=== PATIENT | male | born 1940 | race Hispanic/Latino ===

== ENCOUNTER 2023-09-09 19:38 | Emergency (ER) | payer MEDICARE ==
[~2023-09-09] VITALS: Ht 175.3 cm; Wt 89.6 kg
[~2023-09-09 19:38] MED LIST: LORTAB 7.5 OR; NO HOME MEDS
[2023-09-09 21:55] VITALS: BP 146/79
[2023-09-09] MEDS ORDERED: PREDNISONE20 MG PO (22:13)
[2023-09-09] MEDS ORDERED: VISTARIL25 MG PO (22:13)
[2023-09-09] MEDS ORDERED: ALLEGRA ALLERGY60 MG PO (22:13)
[2023-09-09] MEDS ORDERED: ALBENDAZOLE200 MG PO (22:19)
== END 2023-09-09 23:15 | disposition home or self-care (01) ==
LOC: ED 19:38
DX: S50.862A Insect bite (nonvenomous) of left forearm, initial encounter (principal); S50.861A Insect bite (nonvenomous) of right forearm, initial encounter; W57.XXXA Bitten or stung by nonvenomous insect and other nonvenomous arthropods, initial encounter; Z86.19 Personal history of other infectious and parasitic diseases

== ENCOUNTER 2025-01-23 17:26 | Inpatient (IN) | payer MEDICARE ==
[2025-01-23] VITALS (11 sets, daily range): BP systolic 132–177; BP diastolic 49–72
[~2025-01-23] VITALS: Ht 175.3 cm; Wt 85.0 kg
[~2025-01-23 17:26] MED LIST changes: +ALBENDAZOLE200 MG PO; +ALLEGRA ALLERGY60 MG PO; +PREDNISONE20 MG PO; +VISTARIL25 MG PO
[2025-01-23] MEDS ORDERED: cefTRIAXone SODIUM 2 GM in SODIUM CHLORIDE 0.9% 100 ML IV ONE (17:40)
--- NOTE | 2025-01-23 17:41 | NUR ---
PT TRANSPORTED TO ROOM 2 VIA W/C.
[2025-01-23 18:13] LABS: BASO% 0.5 % (0-3); EOS% 0.1 % (0-8); HEMATOCRIT 41.3 % (39.0-50.0); HEMOGLOBIN 13.9 g/dl (14.0-18.0); IMMATURE GRANULOCYTES 0.3 % (0.0-5.0); LYMPH% 13.1 % (15-41); MEAN CELL VOLUME 96.7 fL CALC (80.0-100.0); MEAN CORPUSCULAR HGB 32.6 pG CALC (26.0-32.0); MEAN CORPUSCULAR HGB CONC 33.7 g/dL CAL (32.0-36.0); NEUT# 7.95 thou/uL (1.82-7.42); RED BLOOD COUNT 4.27 mill/uL (4.70-6.10); RED CELL DISTRI WIDTH 12.8 % (11.5-15.5)
[2025-01-23 18:29] LABS: CREATININE 0.9 mg/dL (0.7-1.3); POTASSIUM 3.8 mmol/l (3.5-5.1); TOTAL PROTEIN 7.1 g/dL (6.3-8.2)
[2025-01-23 18:35] LABS: BILIRUBIN, TOTAL 0.8 mg/dL (0.2-1.3)
[2025-01-23] MEDS ORDERED: SODIUM CHLORIDE 0.9% 1,000 ML IV ONE (18:40)
[2025-01-23 18:41] LABS: URINE BILIRUBIN - DIPSTICK Negative (NEGATIVE); URINE BLOOD DIPSTICK Moderate (NEGATIVE); URINE COLOR Yellow; URINE GLUCOSE - DIPSTICK Negative (NEGATIVE); URINE KETONE 15 mg/dL (NEGATIVE); URINE LEUK ESTERASE Small (NEGATIVE); URINE NITRITE - DIPSTICK Positive (Negative); URINE PH 5.5 (4.5-8.0); URINE PROTEIN - DIPSTICK >=300 mg/dL (NEG-TRACE); URINE SPECIFIC GRAVITY 1.025
[2025-01-23 18:46] LABS: URINE BACTERIA MANY hpf; URINE WBC >100 WBC/hpf (0-5)
[2025-01-23 18:47] LABS: URINE RBC >100 RBC/hpf (0-5)
[2025-01-23] MEDS ORDERED: DOXYCYCLINE HYCLATE 100 MG in SODIUM CHLORIDE 0.9% 100 ML IV ONE (19:35)
[2025-01-23] MEDS ORDERED: ACETAMINOPHEN 325 MG/TAB PO ONE (20:10)
[2025-01-23] MEDS ORDERED: MAGNESIUM HYDROXIDE 30 ML UDC PO PRN (23:45)
[2025-01-23] MEDS ORDERED: SODIUM CHLORIDE 0.9% 1,000 ML IV PRN (23:45)
[2025-01-23] MEDS ORDERED: ACETAMINOPHEN 325 MG/TAB PO PRN (23:45)
[2025-01-24] VITALS (10 sets, daily range): BP systolic 91–120; BP diastolic 46–61
--- NOTE | 2025-01-24 00:30 | NUR ---
CALLED [facility], GAVE PT REPORT TO [place].
--- NOTE | 2025-01-24 01:31 | NUR ---
84 yr old male admitted to [facility] rn 272 per wc from er. weighed per digital scale then to bed. translated per rosario fuentes. conveyor monitor shows a flutter short runs of sinus rhythm. history obtained per pt & er record. oriented to room. fall precautions initiated.
--- NOTE | 2025-01-24 04:00 | NUR ---
groundwater monitoring technician shows a flutter hr 68
--- NOTE | 2025-01-24 07:14 | NUR ---
PT HAD A GLUCOSE OF 106 @0630.
--- NOTE | 2025-01-24 07:41 | NUR ---
PT IS AOX3, [place], RESPIRATIONS ARE EVEN AND UNLABORED ON ROOM AIR, LUNGS ARE CLEAR, BOWEL SOUNDS ARE ACTIVE, PEDAL PULSES ARE PALPABLE TO TOUCH, PT DENIES PAIN AT THIS TIME.
--- NOTE | 2025-01-24 10:36 | NUR ---
patient glucose level is 98.
--- NOTE | 2025-01-24 10:59 | NUR ---
CONTACTED DR DONAHUE'S OFFICE IN REFERENCE TO A UROLOGY CONSULT. I SPOKE WITH FLEX AT 1059 HRS.
[2025-01-24] MEDS ORDERED: CEFEPIME HYDROCHLORIDE 2 GM in SODIUM CHLORIDE 0.9% 100 ML IV SCH (12:00)
--- NOTE | 2025-01-24 14:33 | NUR ---
STOOL SAMPLE COLLECTED AND SENT TO LAB.
--- NOTE | 2025-01-24 15:23 | NUR ---
PT RESTING COMFORTABLY AT THIS TIME WITH RESPIRATIONS EVEN AND UNLABORED. PT BL , NOTIFIED KENROY JIMÉNEZ. PT DENIES PAIN AT THIS TIME.
--- NOTE | 2025-01-24 16:11 | NUR ---
patient glucose level is 97.
--- NOTE | 2025-01-24 18:28 | NUR ---
CALL PLACED TO DR SHANNON TO NOTIFY LAB CALLED TO REPORT PT'S BLOOD TEST WAS POSITIVE FOR ENTEROBACTERLOS AND E.COLI. PT CURRENTLY ON MAXIPIME.
--- NOTE | 2025-01-24 19:15 | NUR ---
awake. denies distress. cardiac nurse practitioner shows sinus rhythm 1st degree avb ivcd pacs pvcs. ivf infusing well. po fluids taken well. voids per urinal. fall precautions cont.
--- NOTE | 2025-01-24 20:47 | NUR ---
01/24/2025 @1999 pt glucose was 103.
[2025-01-24] MEDS ORDERED: ENOXAPARIN SODIUM 40 MG/0.4 ML SYR SC SCH (21:00)
[2025-01-24] MEDS ORDERED: Pantoprazole Sodium 40 MG VIAL (Protonix) IV SCH (21:00)
[2025-01-25] VITALS (11 sets, daily range): BP systolic 120–135; BP diastolic 60–70
--- NOTE | 2025-01-25 00:01 | NUR ---
monitoring specialist shows sinus rhythm 1st degree avb ivcd pacs pvcs
--- NOTE | 2025-01-25 04:00 | NUR ---
engine monitor shows sinus rhythm 1st dwgree avb ivcd pvcs hr 62
[2025-01-25 06:15] LABS: BASO% 0.5 % (0-3); EOS% 1.1 % (0-8); HEMATOCRIT 36.5 % (39.0-50.0); HEMOGLOBIN 12.2 g/dl (14.0-18.0); IMMATURE GRANULOCYTES 0.2 % (0.0-5.0); MEAN CELL VOLUME 98.6 fL CALC (80.0-100.0); MEAN CORPUSCULAR HGB CONC 33.4 g/dL CAL (32.0-36.0); MONO% 8.2 % (2-13); NEUT# 7.77 thou/uL (1.82-7.42); RED BLOOD COUNT 3.7 mill/uL (4.70-6.10); RED CELL DISTRI WIDTH 13.3 % (11.5-15.5)
[2025-01-25 06:18] LABS: BILIRUBIN, TOTAL 0.5 mg/dL (0.2-1.3); CREATININE 0.8 mg/dL (0.7-1.3); MAGNESIUM 1.8 mg/dL (1.6-2.3); POTASSIUM 3.7 mmol/l (3.5-5.1)
[2025-01-25 06:19] LABS: ALBUMIN 2.9 g/dL (3.2-5.0); TOTAL PROTEIN 5.3 g/dL (6.3-8.2)
--- NOTE | 2025-01-25 07:26 | NUR ---
PT IS AOX4, RESPIRATIONS ARE EVEN AND UNLABORED ON ROOM AIR, LUNGS ARE CLEAR THROUGHOUT, BOWEL SOUNDS ARE ACTIVE, PEDAL PULSES ARE STRONG, PT DENIES PAIN AT THIS TIME.
[2025-01-25] MEDS ORDERED: CEFEPIME HYDROCHLORIDE 2 GM in SODIUM CHLORIDE 0.9% 100 ML IV SCH (08:00)
--- NOTE | 2025-01-25 09:33 | NUR ---
IVF CHANGED FROM 100ML/HR TO 80ML/HR PER VERBAL ORDER FROM DR HORNER.
--- NOTE | 2025-01-25 15:37 | NUR ---
pt resting comfortably in the bed, respirations are even and unlabored, pt denies pain at this time.
--- NOTE | 2025-01-25 19:00 | NUR ---
RECD REPORT FROM DAY SHIFT RN. NO DISTRESS NOTED. DENIES COMPLAINTS AT THIS TIME. PT EDUCATED CLINICAL INFORMATION SYSTEMS DIRECTOR LIGHT AND FALL PRECAUTIONS. DEMONSTRATED UNDERSTANDING.
[2025-01-26] VITALS: BP 131/91
[2025-01-26 04:00] VITALS: BP 129/81
[2025-01-26 05:28] LABS: BASO% 0.8 % (0-3); EOS% 1.8 % (0-8); HEMATOCRIT 39.4 % (39.0-50.0); HEMOGLOBIN 13.1 g/dl (14.0-18.0); IMMATURE GRANULOCYTES 0.1 % (0.0-5.0); LYMPH% 21.2 % (15-41); MEAN CELL VOLUME 96.8 fL CALC (80.0-100.0); MEAN CORPUSCULAR HGB 32.2 pG CALC (26.0-32.0); MEAN CORPUSCULAR HGB CONC 33.2 g/dL CAL (32.0-36.0); MONO% 13.2 % (2-13); NEUT# 4.66 thou/uL (1.82-7.42); NEUT% 62.9 % (42-76); RED BLOOD COUNT 4.07 mill/uL (4.70-6.10); RED CELL DISTRI WIDTH 13.1 % (11.5-15.5)
[2025-01-26 05:41] LABS: ALBUMIN 2.9 g/dL (3.2-5.0); BILIRUBIN, TOTAL 0.6 mg/dL (0.2-1.3); CREATININE 0.7 mg/dL (0.7-1.3); MAGNESIUM 1.9 mg/dL (1.6-2.3); POTASSIUM 3.9 mmol/l (3.5-5.1); TOTAL PROTEIN 5.4 g/dL (6.3-8.2)
--- NOTE | 2025-01-26 06:34 | NUR ---
PT REMAINED STABLE THROUGHOUT SHIFT. DENIES COMPLAINTS. VSS RESTING WELL WITH CALL LIGHT WITHIN REACH
--- NOTE | 2025-01-26 07:05 | NUR ---
REPORT RECEIVED FROM LARN
[2025-01-26 07:29] VITALS: BP 142/82
[2025-01-26] MEDS ORDERED: PANTOPRAZOLE SODIUM Sesquihydr 40 MG/TAB PO SCH (09:00)
--- NOTE | 2025-01-26 09:15 | NUR ---
PT RESTING IN SEMI FOWLERS POSITION WITH FAMILY AT BEDSIDE.PT DENIES ANY CURRENT PAIN OR DISCOMFORTS, PAIN SCALE AND REPORTING EDUCATED.RESPIRATIONS EVEN AND UNLABORED ON RA, CLEAR LUNG SOUNDS.ABDOMEN SOFT ON PALPATION AND ACTIVE IN ALL 4 QUADRANTS. STRONG PEDAL PULSES;SKIN INTACT.TELE MONITORING [address] #20G TO RAC INFUSING NS @80ML/HR,SITE APPEARS HEALTHY AND ABX ADMINISTERED PER ORDER.PT DENIES ANY ADDITIONAL NEEDS AND IS ENCOURAGED TO CALL FOR ASSISTANCE IF NEEDED.FALL PRECAUTIONS IN PLACE WITH BED IN THE LOWEST POSITION AND CALL LIGHT IN REACH.FREQUENT ROUNDS MADE.
[2025-01-26 10:41] VITALS: BP 123/67
--- NOTE | 2025-01-26 12:30 | NUR ---
TELE ASP WEB DEVELOPER NOTIFIED OF PT HEART RATE 37-60 RANGE.ASYMPTOMATIC RESTING IN BED. MARGARITA ESTRELLA NOTIFIED. NO NEW ORDERS RECEIVED.
--- NOTE | 2025-01-26 12:30 | NUR ---
PT RESTING IN SEMI FOWLERS POSITION WITH FAMILY AT BEDSIDE.RESPIRATIONS EVEN AND UNLABORED ON RA. PT DENIES ANY CURRENT PAIN OR NEEDS.TELE MONITORING IN PLACE. IV SITE REMAINS PATENT INFUSING NS WITH EASE.ENCOURAGED TO CALL FOR ASSISTANCE IF NEEDED.CALL LIGHT IN REACH.FREQUENT ROUNDS MADE
[2025-01-26 14:47] VITALS: BP 118/62
--- NOTE | 2025-01-26 15:25 | NUR ---
PT RESTING IN SEMI FOWLERS POSITION WITH FAMILY AT BEDSIDE. RESPIRATIONS REMAIN EVEN AND UNLABORED ON RA. PT DENIES ANY CURRENT PAIN OR NEEDS. IV SITE TO RAC REMAINS PATENT INFUSING NS @ 80ML/HR, ABX ADMINISTERED AT THIS TIME PER ORDER. TELE MONITORING IN PLACE;URINAL EMPTIED OF 100CC OF CLEAR/YELLOW URINE. PT ENCOURAGED TO CALL FOR ASSISTANCE IF NEEDED.CALL LIGHT IN REACH.FREQUENT ROUNDS MADE
--- NOTE | 2025-01-26 15:32 | NUR ---
PT AND FAMILY REPORTS PT HAD A BOWEL MOVEMENT LAST NIGHT 01/25/25 THAT WAS NOT DOCUMENTED BY NIGHTSHIFT. PT DENIES THE NEED FOR STOOL SOFTENERS AT THIS TIME.
--- NOTE | 2025-01-26 19:30 | NUR ---
RECD REPORT FROM DAY SHIFT RN. PT IS FREE FROM COMPLAINTS AND DISTRESS. RESTING WELL WITH CALL LIGHT IN REACH. DEMONSTRATES UNDERSTANDING OF CALL LIGHT
--- NOTE | 2025-01-27 | NUR ---
PT DENIES PAIN AND SOB, TELE BATTERY CHANGED. PT REMAINS STABLE WITH NO COMPLAINTS NO SIGNS OF DISTRESS RESTING WELL WITH CALL LIGHT IN REACH
--- NOTE | 2025-01-27 05:03 | NUR ---
PT REMAINS STABLE, DENIES COMPLAINTS. 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 TECH REQUESTED EKG FROM RT WHO PERFORMED AND RESULTED EKG AT 0015AM SINUS RHYTHM 2ND DEGREE AVB TYPE 2. EKG DELIVERED TO RN ON TELEPHONE NOTIFICATION FROM ED. EKG SHOWED SR WITH 2ND DEGREE AVB TYPE 2. CONFIRMATION OF NONLETHAL RHYTHM, PT DENIES CP, SOB OR CONCERNS/COMPLAINTS - NO CHANGES IN STABILITY FROM PRIOR ASSMT. CONTACTED AND COLLABORATED WITH SUP ON ALLOWING TO OBTAIN AM LABS FOR SERUM ELECTROLYTES BEFORE CALLING MEDICAL DIRECTOR TO OBTAIN FULL POSSIBLE CONTRIBUTORY FACTORS TO ALLOW PROVIDER TO FULLY ASSESS. SUP AGREED. THROUGHOUT LAST PAPER CONSERVATOR AND THIS SHIFT PT HAS HAD INTERMITTENT DROPS INTO THE MID 30S HR WHICH HAS BEEN EVIDENT SINCE ADMISSION - AT NO POINT DID PT ON THE TWO SHIFTS RN OVERSAW CARE DROP BELOW OR SUSTAIN BELOW 35BPM. RN WAS PRESENT NIGHT OF ADMISSION AND RECALLED THE SAME RATE FROM THE NIGHT PT WAS ADMITTED UNDER CARE OF ANOTHER NURSE. REASSESSMENT OF PT AGAIN CONFIRMED NO DISTRESS, ACUTE INSTABILITY OR IMPENDING CONCERNS. AT OR AROUND 0520AM ED EQUIPMENT STERILIZER CALLED WITH NOTIFICATION THAT HE BELIEVED PT WAS IN A 3RD DEGREE BLOCK, RN ASKED FOR ALARM TIME OR REFERENCE TO COLLABORATIVELY VIEW RHYTHM TOGETHER AND NOTED THAT 05:03AM ALARM SHOWED A PAUSE TECH REPORTED AT >3 SECONDS. AT TIME OF ASSESSMENT SIMULTANEOUS MONITORING IN REAL TIME WAS BEING VIEWED AND RN IDENTIFIED P WAVES IN SR 2ND DEGREE AVB ALIGNED WITH EKG. A FEW MINUTES LATER ED EQUIPMENT STERILIZER REPORTED PT WAS BELIEVED TO HAVE CONVERTED TO AFLUTTER. SAWTOOTH WAS NOTED, BUT WITH SOME P WAVES RAISING POSSIBILITY OF CONVERSION IN AND OUT OF MORE THAN ONE RHYTHMS. CONTACTED FRANKIE AND EXPLAINED CONFIRMATION EKG, CURRENT VIEWED RHYTHM, PT CONDITION AND REPORT THE PATIENT IS IN A FLUTTER. FRANKIE DIRECTED PUBLIC MESSAGE SERVICE SUPERVISOR TO PRINT ALL STRIPS IDENTIFYING RHYTHM CHANGES AND DR WEEMS/FRANKIE WOULD ASSESS ON ARRIVAL AT 7AM. AT 0545AM EQUIPMENT STERILIZER ON UNIT PRINTED THREE STRIPS OF WHICH HE IDENTIFIED A PAUSE, CONVERSION TO A FLUTTER AND REQ EKG FROM RT. AGAIN EKG PERFORMED - SUSTAINING RATES SIMILAR WITH CONSISTENT VARIATIONS. PROVIDER NOTIFIED ALL PAPERWORK AFFIXED TO CHART FOR REVIEW PER PROVIDER REQUEST
[2025-01-27 06:33] LABS: BASO% 0.6 % (0-3); EOS% 3.5 % (0-8); HEMATOCRIT 37.8 % (39.0-50.0); HEMOGLOBIN 12.4 g/dl (14.0-18.0); IMMATURE GRANULOCYTES 0.2 % (0.0-5.0); LYMPH% 22.1 % (15-41); MEAN CELL VOLUME 99.2 fL CALC (80.0-100.0); MEAN CORPUSCULAR HGB 32.5 pG CALC (26.0-32.0); MEAN CORPUSCULAR HGB CONC 32.8 g/dL CAL (32.0-36.0); MONO% 9.7 % (2-13); NEUT# 4.2 thou/uL (1.82-7.42); NEUT% 63.9 % (42-76); RED BLOOD COUNT 3.81 mill/uL (4.70-6.10); RED CELL DISTRI WIDTH 13.2 % (11.5-15.5)
[2025-01-27 06:57] LABS: ALBUMIN 2.8 g/dL (3.2-5.0); BILIRUBIN, TOTAL 0.4 mg/dL (0.2-1.3); CREATININE 0.7 mg/dL (0.7-1.3); MAGNESIUM 1.9 mg/dL (1.6-2.3); POTASSIUM 3.9 mmol/l (3.5-5.1); TOTAL PROTEIN 5.5 g/dL (6.3-8.2)
--- NOTE | 2025-01-27 07:26 | NUR ---
PATIENT SITTING UP IN BED WATCHING TV. BREATHING UNLABORED ON ROOM AIR. TELE INTACT. IV IN RAC INFUSING FLUIDS PER EMAR;SITE CLEAN AND INTACT. ASSESSMENT COMPLETED. PT DENIES ANY PAIN OR N/D/V AT THIS TIME. PESONAL ITEMS NEAR WELL CALL LIGHT. BED IN LOWEST POSITION.NO NEEDS AT THIS TIME.POC ONGOING.
[2025-01-27 07:27] VITALS: BP 143/67
--- NOTE | 2025-01-27 08:39 | NUR ---
PATIENT LEFT UNIT VIA WC FOR PICC INSERTION.
--- NOTE | 2025-01-27 09:19 | NUR ---
PT ARRIVED BACK TO UNIT VIA WC FROM PICC INSERTION.
[2025-01-27 10:51] VITALS: BP 138/60
--- NOTE | 2025-01-27 12:16 | NUR ---
PATIENT SITTING UP IN BED EATING LUNCH. BREATHIHG UNLABORED ON ROOM AIR. LUCY PICC INFUSING FLUIDS PER EMAR;SITE CLEAN AND INTACT. TELE INTACT. FAMILY MEMBERS AT BEDSIDE. PT DENIES ANY PAIN OR N/D/V AT THIS TIME. PERSONAL ITEMS WELL CALL LIGHT NEAR. BED IN LOWEST POSITION. NO NEEDS AT THIS TIME. POC ONGOING.
[2025-01-27 14:29] VITALS: BP 141/66
--- NOTE | 2025-01-27 16:11 | NUR ---
PATIENT SITTING UP IN BED WATCHING TV. BREATHING UNLABORED ON ROOM AIR. TELE INTACT. LUCY PICC INFUSING FLUIDS PER EMAR;SITE CLEAN AND INTACT. DAUGHTERS AT BEDSIDE. PT DENIES ANY PAIN OR N/D/V AT THIS TIME. PERSONAL ITEMS WELL CALL LIGHT NEAR. BED IN LOWEST POSITION. NO OTHER NEEDS AT THIS TIME.
[2025-01-27 16:42] VITALS: BP 141/66
[2025-01-27 18:37] VITALS: BP 159/69
--- NOTE | 2025-01-27 20:30 | NUR ---
PATIENT IN ROOM RESTING IN BED. FAMILY AT BEDSIDE. PATIENT CAN MAKE NEEDS KNOWN. PATIENT COMPLAINS OF A SLIGHT HEADACHE GAVE TYLENOL PER EMAR. EQUAL UNLABORED RESP, NO VISUAL SIGNS OF DISTRESS. ABDOMEN SOFT AND DISTENDED. PEDAL PUSES EQUAL. PATIENT AWATING TRANSPORT TO [facility]. BED AT LOWEST POSITION CALL LIGHT WITH IN REACH.
--- NOTE | 2025-01-27 22:00 | NUR ---
PATIENT RECIVED ROOM T220 FROM [facility]. TRANSPORTATION CALLED. CALLED [facility] TO GIVE REPORT GAVE REPORT TO NURSE CHRISTINA.
--- NOTE | 2025-01-27 22:27 | NUR ---
PATIENT LEFT THE UNIT VIA STRETCHER ACCOMPAINED BY [facility] TO [facility] FLOOR ROOM T220. REPORT CALLED EARLIER BY PRIMARY NURSE (PN), Joseline CASTILLO. PN UPDATED TRANSFER FACILITY WITH DEPARTURE TIME. ALL BELONGINGS SENT WITH PATIENT.
--- NOTE | 2025-01-27 22:36 | NUR ---
TRANSPORTATION CAME FOR PATIENT. GAVE ALL DOC AND PAPER WORK. FAMILY CALLED TO UPDATE.
== END 2025-01-27 22:27 | disposition short-term general hospital (02) | DRG 872 ==
LOC: ED 17:26 → ED-I 23:33 → ED 23:47 → MS2 23:48
PROVIDERS: Family Medicine; Nurse Practitioner Family; ADMIT Internal Medicine; ATTEND Internal Medicine
PROC: 02HV33Z Insertion of Infusion Device into Superior Vena Cava, Percutaneous Approach (ICD-10-PCS; principal; 2025-01-27)
PROC: B518ZZA Fluoroscopy of Superior Vena Cava, Guidance (ICD-10-PCS; 2025-01-27)
DX: A41.89 Other specified sepsis (principal); I44.2 Atrioventricular block, complete; N39.0 Urinary tract infection, site not specified; N20.0 Calculus of kidney; R19.5 Other fecal abnormalities; I27.20 Pulmonary hypertension, unspecified
CPT/HCPCS: J0692; J0696; J1650; J2470; Q9967